=== PATIENT | male | born 1950 | race Caucasian/White ===

== ENCOUNTER 2018-06-10 02:00 | Inpatient (IN) | payer MEDICARE, MEDICAID ==
[~2018-06-10] VITALS: Ht 180.3 cm; Wt 105.9 kg
[2018-06-10] MEDS ORDERED: NITROGLYCERIN 0.4MG TABLET SL SL PRN (02:30)
[2018-06-10] MEDS ORDERED: FUROSEMIDE 40MG/4ML VIAL IV ONE (02:30)
[2018-06-10 02:42] LABS: BASOPHILS % 0.7 % (0.0-2.0); EOSINOPHILS % 0.2 % (0.0-5.0); HEMOGLOBIN. 11.8 g/dL (14.0-18.0); LYMPHOCYTES % 9.5 % (20.0-50.0); MEAN CORPUSCULAR HEMOGLOBIN 29.9 pg (28.0-32.0); MEAN CORPUSCULAR VOLUME 88.4 fL (80.0-94.0); MEAN PLATELET VOLUME 8.3 fl (7.4-10.4); NEUTROPHILS % 81.6 % (40.0-76.0); PLATELET 164 x1000/uL (130-400); RED BLOOD CELL COUNT 3.96 mill/uL (4.7-6.1); RED CELL DISTRIBUTION WIDTH 13.8 % (11.6-14.6)
[2018-06-10 02:46] LABS: CHLORIDE 94 mEq/L (98-107)
[2018-06-10] MEDS ORDERED: VECURONIUM BROMIDE 10 MG/VIAL IV ONE (09:54)
[2018-06-10 10:07] LABS: BG BASE EXCESS 4.2 mmol/L (-2.0-2.0); BG BILEVEL POS AIRWAY PRESSURE 15/5; BG CARBOXYHEMOGLOBIN 0.5 % (0.5-1.5); BG DEOXYHEMOGLOBIN 1.9 % (0.0-5.0); BG HCO3 ACT 30.5 mmol/L (22.0-26.0); BG METHEMOGLOBIN 0.2 % (0.0-1.5); BG OXYGEN SATURATION 98.1 % (92.0-98.5); BG OXYHEMOGLOBIN 97.4 % (94.0-97.0); BG PCO2 53.2 mmHg (35.0-45.0); BG PH 7.376 (7.350-7.450); BG SAMPLE SITE LEFT RADIAL; BG TOTAL HEMOGLOBIN 12.5 g/dL (12.0-18.0); BG VENT MODE MASK - BIPAP; BG VENT RATE 14 set
[2018-06-10 10:49] LABS: PARTIAL THROMBOPLASTIN TIME 36.4 sec (23.4-31.0); PROTHROMBIN TIME 10.1 sec (9.1-11.1)
[2018-06-10] MEDS ORDERED: HYDROCODONE/ACETAMINOPHEN 5/325MG TABLET PO PRN (13:45)
[2018-06-10] MEDS ORDERED: IPRATROPIUM/ALBUTEROL 0.5-3(2.5)MG/3ML NEB INH PRN (13:45)
[2018-06-10] MEDS ORDERED: ACETAMINOPHEN 325MG TABLET PO PRN (13:45)
[2018-06-10] MEDS ORDERED: ONDANSETRON HCL 4MG/2ML INJ IV PRN (13:45)
[2018-06-10] MEDS ORDERED: LORAZEPAM 0.5MG TABLET PO PRN (13:45)
[2018-06-10 14:20] LABS: PHOSPHORUS 3.1 mg/dL (2.5-4.9)
[2018-06-10 14:39] LABS: FOLIC ACID (FOLATE) SERUM >20 ng/mL ng/mL (>5.38)
[2018-06-10 14:51] LABS: FERRITIN 99 ng/mL (22-322); VITAMIN B12 SERUM 827 pg/mL (211-911)
[2018-06-10] MEDS ORDERED: PREDNISONE 20MG TABLET PO SCH (15:45)
[2018-06-10 21:37] VITALS: BP_SYST 160; BP_DIAS 85; BP_DIAS 96
[2018-06-10 22:00] VITALS: BP 169/97
[2018-06-10 22:54] LABS: BG BASE EXCESS -0.3 mmol/L (-2.0-2.0); BG BILEVEL POS AIRWAY PRESSURE 15/5; BG CARBOXYHEMOGLOBIN 0.6 % (0.5-1.5); BG DEOXYHEMOGLOBIN 0.5 % (0.0-5.0); BG FRACTION INSPIRED OXYGEN 100; BG HCO3 ACT 29.9 mmol/L (22.0-26.0); BG METHEMOGLOBIN 0.6 % (0.0-1.5); BG OXYGEN SATURATION 99.5 % (92.0-98.5); BG OXYHEMOGLOBIN 98.3 % (94.0-97.0); BG PCO2 78.7 mmHg (35.0-45.0); BG PH 7.197 (7.350-7.450); BG PO2 346.6 mmHg (75.0-100.0); BG SAMPLE SITE RIGHT BRACHIAL; BG TOTAL HEMOGLOBIN 13.4 g/dL (12.0-18.0); BG VENT MODE MASK - BIPAP; BG VENT RATE 16 set
[2018-06-10] MEDS: MONTELUKAST SODIUM 10MG TABLET PO SCH (23:00)
[2018-06-10] MEDS: LORATADINE 10MG TABLET PO SCH (23:00)
[2018-06-11] VITALS (15 sets, daily range): BP systolic 108–154; BP diastolic 56–98
[2018-06-11] MEDS ORDERED: DEXTROSE 50% WATER 50ML SYRINGE IV PRN
[2018-06-11] MEDS ORDERED: CLONIDINE 0.1MG TABLET PO PRN
[2018-06-11] MEDS: MONTELUKAST SODIUM 10MG TABLET PO SCH ×2 (00:20→16:28)
[2018-06-11] MEDS: LORATADINE 10MG TABLET PO SCH ×2 (00:20→20:02)
[2018-06-11] MEDS: AMOXICILLIN/POTASSIUM CLAVULANATE 875/125MG TAB PO SCH ×4 (00:21→20:02)
[2018-06-11] MEDS: METHYLPREDNISOLONE SOD SUCC 125 MG/2 ML VIAL IV SCH ×4 (00:21→21:15)
[2018-06-11] MEDS ORDERED: MAGNESIUM 2 G PREMIX 50 ML IV SCH (01:00)
[2018-06-11] MEDS: IPRATROPIUM/ALBUTEROL 0.5-3(2.5)MG/3ML NEB HHN SCH ×4 (02:05→20:09)
[2018-06-11] MEDS ORDERED: ACETAMINOPHEN 650MG SUPP PR PRN (05:30)
[2018-06-11] MEDS ORDERED: ASPI-1158 PO (05:53)
[2018-06-11] MEDS ORDERED: ATEN50TA PO (05:53)
[2018-06-11] MEDS ORDERED: PRAM0.5T3 PO (06:00)
[2018-06-11] MEDS ORDERED: NIFE30TA83 PO (06:00)
[2018-06-11] MEDS ORDERED: ALBUTEROL SULFATE (06:00)
[2018-06-11] MEDS: BLOOD SUGAR DIAGNOSTIC STRIP TEST SCH ×4 (06:33→20:18)
[2018-06-11 06:37] LABS: HEMATOCRIT. 35.4 % (42.0-52.0); HEMOGLOBIN. 11.7 g/dL (14.0-18.0); MEAN CORPUSCULAR HEMOGLOBIN 29.8 pg (28.0-32.0); MEAN PLATELET VOLUME 8.5 fl (7.4-10.4); PLATELET 160 x1000/uL (130-400); RED BLOOD CELL COUNT 3.94 mill/uL (4.7-6.1); RED CELL DISTRIBUTION WIDTH 14.2 % (11.6-14.6)
[2018-06-11 07:16] LABS: PHOSPHORUS 6.7 mg/dL (2.5-4.9)
[2018-06-11] MEDS: INSULIN LISPRO 100 UNITS/ML SUBCUT SCH ×4 (07:20→21:14)
[2018-06-11] MEDS: FAMOTIDINE 20MG/2ML VIAL IV SCH ×2 (08:32→20:02)
[2018-06-11] MEDS: FLUTICASONE PROPIONATE 50MCG/SPRAY BOTTLE BOTHNSTRLS SCH ×3 (08:32→20:07)
[2018-06-11 09:14] LABS: BG BASE EXCESS -4.1 mmol/L (-2.0-2.0); BG BILEVEL POS AIRWAY PRESSURE 18/5; BG CARBOXYHEMOGLOBIN 0.3 % (0.5-1.5); BG FRACTION INSPIRED OXYGEN 50; BG HCO3 ACT 23.6 mmol/L (22.0-26.0); BG METHEMOGLOBIN 0.4 % (0.0-1.5); BG OXYHEMOGLOBIN 97.3 % (94.0-97.0); BG PCO2 55.1 mmHg (35.0-45.0); BG PO2 117.6 mmHg (75.0-100.0); BG SAMPLE SITE RIGHT RADIAL; BG TOTAL HEMOGLOBIN 12.1 g/dL (12.0-18.0); BG VENT MODE MASK - BIPAP; BG VENT RATE 24 set
[2018-06-11] MEDS ORDERED: TERBUTALINE SULFATE 1MG/ML VIAL SUBCUT NR (11:45)
[2018-06-11 14:18] LABS: PLATELET ESTIMATE NORMAL
[2018-06-11] MEDS: SODIUM CHLORIDE 0.9% 1,000 ML IV SCH (14:51)
[2018-06-11 16:34] LABS: CLARITY URINE CLOUDY (CLEAR); COLOR URINE DARK YELLOW (YELLOW); KETONES URINE TRACE (NEGATIVE); LEUKOCYTE ESTERASE URINE NEGATIVE (NEGATIVE); NITRITE URINE NEGATIVE (NEGATIVE); OCCULT BLOOD URINE 3+ (NEGATIVE); PROTEIN URINE 4+ (NEGATIVE); SPECIFIC GRAVITY URINE 1.018 (1.005-1.030)
[2018-06-11 16:43] LABS: SODIUM URINE RANDOM 16 mEq/L
[2018-06-11 16:50] LABS: *AMPHETAMINES SCREEN URINE NEGATIVE (NEGATIVE); *BARBITURATES SCREEN URINE NEGATIVE (NEGATIVE); *BENZODIAZEPINES SCREEN URINE NEGATIVE (NEGATIVE); *COCAINE SCREEN URINE NEGATIVE (NEGATIVE); METHADONE URINE SCREEN NEGATIVE (NEGATIVE)
[2018-06-11 16:51] LABS: CANNABINOID URINE SCREEN NEGATIVE (NEGATIVE); OPIATES URINE SCREEN NEGATIVE (NEGATIVE); PHENCYCLIDINE URINE SCREEN NEGATIVE (NEGATIVE)
[2018-06-11] MEDS: GUAIFENESIN 600MG ER TABLET PO SCH (20:02)
[2018-06-11] MEDS ORDERED: INSULIN LISPRO 100 UNITS/ML SUBCUT NR (20:45)
[2018-06-12] VITALS (19 sets, daily range): BP systolic 110–161; BP diastolic 66–90
[2018-06-12] MEDS: IPRATROPIUM/ALBUTEROL 0.5-3(2.5)MG/3ML NEB HHN SCH ×4 (02:16→21:18)
[2018-06-12] MEDS: METHYLPREDNISOLONE SOD SUCC 125 MG/2 ML VIAL IV SCH ×4 (05:27→23:50)
[2018-06-12] MEDS: SODIUM CHLORIDE 0.9% 1,000 ML IV SCH (05:27)
[2018-06-12] MEDS: BLOOD SUGAR DIAGNOSTIC STRIP TEST SCH ×4 (06:16→20:31)
[2018-06-12 06:46] LABS: HEMOGLOBIN. 11.5 g/dL (14.0-18.0); MEAN CORPUSCULAR HEMOGLOBIN 30.1 pg (28.0-32.0); MEAN CORPUSCULAR VOLUME 89.2 fL (80.0-94.0); MEAN PLATELET VOLUME 9.4 fl (7.4-10.4); PLATELET 163 x1000/uL (130-400); RED BLOOD CELL COUNT 3.82 mill/uL (4.7-6.1); RED CELL DISTRIBUTION WIDTH 14.1 % (11.6-14.6)
[2018-06-12] MEDS: AMOXICILLIN/POTASSIUM CLAVULANATE 875/125MG TAB PO SCH (08:02)
[2018-06-12] MEDS: FAMOTIDINE 20MG/2ML VIAL IV SCH ×2 (08:02→20:20)
[2018-06-12] MEDS: GUAIFENESIN 600MG ER TABLET PO SCH ×2 (08:02→20:20)
[2018-06-12] MEDS: FLUTICASONE PROPIONATE 50MCG/SPRAY BOTTLE BOTHNSTRLS SCH ×2 (08:02→20:19)
[2018-06-12] MEDS: INSULIN LISPRO 100 UNITS/ML SUBCUT SCH ×6 (08:03→21:27)
[2018-06-12] MEDS ORDERED: LACTULOSE 20G/30ML UDC PO NR (09:00)
[2018-06-12] MEDS ORDERED: NA PHOS,M-B/NA PHOS,DI-BA ENEMA 118ML PR NR (09:00)
[2018-06-12 09:08] LABS: PHOSPHORUS 6.3 mg/dL (2.5-4.9)
[2018-06-12 09:12] LABS: T4 FREE 1.11 ng/dL (0.76-1.46)
[2018-06-12] MEDS ORDERED: FUROSEMIDE 100MG/10ML VIAL IVP NR (10:45)
[2018-06-12 10:56] LABS: BG BASE EXCESS -5.4 mmol/L (-2.0-2.0); BG BILEVEL POS AIRWAY PRESSURE 18/5; BG CARBOXYHEMOGLOBIN 0.3 % (0.5-1.5); BG FRACTION INSPIRED OXYGEN 50; BG HCO3 ACT 23.2 mmol/L (22.0-26.0); BG OXYGEN SATURATION 97.6 % (92.0-98.5); BG OXYHEMOGLOBIN 96.8 % (94.0-97.0); BG PCO2 59.9 mmHg (35.0-45.0); BG PH 7.206 (7.350-7.450); BG PO2 110.5 mmHg (75.0-100.0); BG SAMPLE SITE RIGHT RADIAL; BG TOTAL HEMOGLOBIN 12.5 g/dL (12.0-18.0); BG VENT MODE MASK - BIPAP; BG VENT RATE 24 set
[2018-06-12 10:57] LABS: BG DEOXYHEMOGLOBIN 2.4 % (0.0-5.0); BG METHEMOGLOBIN 0.5 % (0.0-1.5)
[2018-06-12] MEDS: AZITHROMYCIN 250 MG TABLET PO SCH (11:29)
[2018-06-12] MEDS: INSULIN GLARGINE UD 100 UNITS/ML SYR SUBCUT SCH ×2 (12:50→21:27)
[2018-06-12 13:34] LABS: HEPATITIS B SURFACE ANTIGEN NEGATIVE
[2018-06-12 13:37] LABS: BG BASE EXCESS -4.8 mmol/L (-2.0-2.0); BG BILEVEL POS AIRWAY PRESSURE 20/5; BG CARBOXYHEMOGLOBIN 0.4 % (0.5-1.5); BG DEOXYHEMOGLOBIN 6.1 % (0.0-5.0); BG FRACTION INSPIRED OXYGEN 40; BG HCO3 ACT 23.1 mmol/L (22.0-26.0); BG METHEMOGLOBIN 0.2 % (0.0-1.5); BG OXYGEN SATURATION 93.9 % (92.0-98.5); BG OXYHEMOGLOBIN 93.3 % (94.0-97.0); BG PCO2 54.2 mmHg (35.0-45.0); BG PH 7.247 (7.350-7.450); BG PO2 70.3 mmHg (75.0-100.0); BG SAMPLE SITE RIGHT RADIAL; BG TOTAL HEMOGLOBIN 13.7 g/dL (12.0-18.0); BG VENT MODE MASK - BIPAP; BG VENT RATE 24 set
[2018-06-12 14:04] LABS: HEPATITIS A AB IGM NEGATIVE (NEGATIVE)
[2018-06-12] MEDS: MONTELUKAST SODIUM 10MG TABLET PO SCH (17:31)
[2018-06-12] MEDS: LORATADINE 10MG TABLET PO SCH (20:20)
[2018-06-12] MEDS: CALCIUM CARBONATE 500MG TABLET CHEW PO SCH (20:20)
[2018-06-12] MEDS: CALCITRIOL 0.25MCG CAPSULE PO SCH (21:26)
[2018-06-12 21:46] LABS: PLATELET ESTIMATE NORMAL
[2018-06-13] VITALS (14 sets, daily range): BP systolic 111–157; BP diastolic 56–94
[2018-06-13] MEDS: IPRATROPIUM/ALBUTEROL 0.5-3(2.5)MG/3ML NEB HHN SCH ×4 (01:18→21:02)
[2018-06-13] MEDS: METHYLPREDNISOLONE SOD SUCC 125 MG/2 ML VIAL IV SCH ×2 (06:06→12:33)
[2018-06-13] MEDS: BLOOD SUGAR DIAGNOSTIC STRIP TEST SCH ×4 (06:06→20:48)
[2018-06-13 06:50] LABS: PARTIAL THROMBOPLASTIN TIME 31.5 sec (23.4-31.0); PROTHROMBIN TIME 9.6 sec (9.1-11.1)
[2018-06-13 07:03] LABS: HEMATOCRIT. 34.8 % (42.0-52.0); HEMOGLOBIN. 11.5 g/dL (14.0-18.0); MEAN CORPUSCULAR HEMOGLOBIN 29.2 pg (28.0-32.0); MEAN CORPUSCULAR VOLUME 88.6 fL (80.0-94.0); MEAN PLATELET VOLUME 9.1 fl (7.4-10.4); PLATELET 183 x1000/uL (130-400); RED BLOOD CELL COUNT 3.93 mill/uL (4.7-6.1); RED CELL DISTRIBUTION WIDTH 14.2 % (11.6-14.6)
[2018-06-13] MEDS: INSULIN LISPRO 100 UNITS/ML SUBCUT SCH ×7 (07:55→20:48)
[2018-06-13] MEDS: CALCIUM CARBONATE 500MG TABLET CHEW PO SCH ×3 (07:56→17:26)
[2018-06-13] MEDS: CALCITRIOL 0.25MCG CAPSULE PO SCH (08:00)
[2018-06-13] MEDS: GUAIFENESIN 600MG ER TABLET PO SCH ×2 (08:00→20:46)
[2018-06-13] MEDS: FAMOTIDINE 20MG/2ML VIAL IV SCH ×2 (08:00→21:54)
[2018-06-13] MEDS: AZITHROMYCIN 250 MG TABLET PO SCH (08:00)
[2018-06-13] MEDS: FLUTICASONE PROPIONATE 50MCG/SPRAY BOTTLE BOTHNSTRLS SCH ×2 (08:00→20:45)
[2018-06-13] MEDS: DOCUSATE SODIUM 100MG CAPSULE PO PRN (08:00)
[2018-06-13 08:48] LABS: CHLORIDE 97 mEq/L (98-107)
[2018-06-13] MEDS: LORAZEPAM 2MG/ML CPJ IV PRN ×3 (09:55→22:01)
[2018-06-13 10:31] LABS: PLATELET ESTIMATE NORMAL
[2018-06-13 10:40] LABS: BG BASE EXCESS -4.2 mmol/L (-2.0-2.0); BG DEOXYHEMOGLOBIN 5.2 % (0.0-5.0); BG FRACTION INSPIRED OXYGEN 32; BG HCO3 ACT 24.2 mmol/L (22.0-26.0); BG METHEMOGLOBIN 0.2 % (0.0-1.5); BG OXYGEN SATURATION 94.8 % (92.0-98.5); BG OXYHEMOGLOBIN 94.6 % (94.0-97.0); BG PCO2 60.1 mmHg (35.0-45.0); BG PH 7.223 (7.350-7.450); BG PO2 78.6 mmHg (75.0-100.0); BG SAMPLE SITE RIGHT BRACHIAL; BG TOTAL HEMOGLOBIN 12.5 g/dL (12.0-18.0); BG VENT MODE NASAL CANNULA
[2018-06-13] MEDS: INSULIN GLARGINE UD 100 UNITS/ML SYR SUBCUT SCH ×2 (10:45→20:48)
[2018-06-13] MEDS ORDERED: CALCIUM GLUCONATE 100MG/ML 10ML VIAL IV ONE (11:15)
[2018-06-13] MEDS ORDERED: CALCIUM GLUCONATE 2,000 MG in DEXT 5% WATER 90 ML IV NR (13:00)
[2018-06-13] MEDS: POLYETHYLENE GLYCOL 3350 (17GM) 1 DOSE PACK PO SCH (16:15)
[2018-06-13] MEDS: MONTELUKAST SODIUM 10MG TABLET PO SCH (17:26)
[2018-06-13] MEDS: LORATADINE 10MG TABLET PO SCH (20:46)
[2018-06-13] MEDS: METHYLPREDNISOLONE SOD SUCC 40 MG/ML VIAL IV SCH (21:54)
[2018-06-14] VITALS (11 sets, daily range): BP systolic 134–162; BP diastolic 76–104
[2018-06-14] MEDS: IPRATROPIUM/ALBUTEROL 0.5-3(2.5)MG/3ML NEB HHN SCH ×4 (01:30→22:01)
[2018-06-14] MEDS: METHYLPREDNISOLONE SOD SUCC 40 MG/ML VIAL IV SCH ×3 (06:09→21:26)
[2018-06-14 06:33] LABS: HEMATOCRIT. 34.1 % (42.0-52.0); HEMOGLOBIN. 11.4 g/dL (14.0-18.0); MEAN CORPUSCULAR HEMOGLOBIN 29.4 pg (28.0-32.0); MEAN CORPUSCULAR VOLUME 88.3 fL (80.0-94.0); MEAN PLATELET VOLUME 9.1 fl (7.4-10.4); PLATELET 200 x1000/uL (130-400); RED BLOOD CELL COUNT 3.86 mill/uL (4.7-6.1); RED CELL DISTRIBUTION WIDTH 14.2 % (11.6-14.6)
[2018-06-14] MEDS: BLOOD SUGAR DIAGNOSTIC STRIP TEST SCH ×4 (06:50→20:30)
[2018-06-14] MEDS: GUAIFENESIN 200MG/10ML SUGAR FREE UDC PO PRN ×2 (08:30→17:24)
[2018-06-14] MEDS: POLYETHYLENE GLYCOL 3350 (17GM) 1 DOSE PACK PO SCH (08:31)
[2018-06-14] MEDS: FAMOTIDINE 20MG/2ML VIAL IV SCH ×2 (08:31→20:21)
[2018-06-14] MEDS: CALCITRIOL 0.25MCG CAPSULE PO SCH (08:32)
[2018-06-14] MEDS: AZITHROMYCIN 250 MG TABLET PO SCH (08:32)
[2018-06-14] MEDS: GUAIFENESIN 600MG ER TABLET PO SCH ×2 (08:32→20:22)
[2018-06-14] MEDS: CALCIUM CARBONATE 500MG TABLET CHEW PO SCH ×3 (08:32→17:22)
[2018-06-14] MEDS: INSULIN LISPRO 100 UNITS/ML SUBCUT SCH ×7 (08:33→20:30)
[2018-06-14 09:06] LABS: HIV SCREEN 4G Non Reactive (Non Reactive)
[2018-06-14] MEDS: INSULIN GLARGINE UD 100 UNITS/ML SYR SUBCUT SCH ×2 (11:56→21:25)
[2018-06-14 12:41] LABS: PLATELET ESTIMATE NORMAL
[2018-06-14] MEDS: HYDRALAZINE HCL 10MG TABLET PO SCH ×2 (14:41→21:26)
[2018-06-14 17:06] LABS: ANTI-DNA DOUBLE STRANDED QUANT < 1 IU/mL (0-9); ANTI-NUCLEAR ANTIBODIES DIRECT Negative (Negative)
[2018-06-14] MEDS: MONTELUKAST SODIUM 10MG TABLET PO SCH (17:22)
[2018-06-14] MEDS: LORATADINE 10MG TABLET PO SCH (20:21)
[2018-06-15] VITALS (15 sets, daily range): BP systolic 121–175; BP diastolic 72–101
[2018-06-15] MEDS: IPRATROPIUM/ALBUTEROL 0.5-3(2.5)MG/3ML NEB HHN SCH ×4 (01:02→21:34)
[2018-06-15] MEDS: METHYLPREDNISOLONE SOD SUCC 40 MG/ML VIAL IV SCH (06:36)
[2018-06-15] MEDS: BLOOD SUGAR DIAGNOSTIC STRIP TEST SCH ×4 (06:37→20:26)
[2018-06-15] MEDS: HYDRALAZINE HCL 10MG TABLET PO SCH (06:37)
[2018-06-15] MEDS: INSULIN LISPRO 100 UNITS/ML SUBCUT SCH ×7 (06:43→20:27)
[2018-06-15 06:58] LABS: HEMATOCRIT. 35.4 % (42.0-52.0); HEMOGLOBIN. 11.6 g/dL (14.0-18.0); MEAN CORPUSCULAR HEMOGLOBIN 29.3 pg (28.0-32.0); MEAN CORPUSCULAR VOLUME 89.4 fL (80.0-94.0); PLATELET 223 x1000/uL (130-400); RED BLOOD CELL COUNT 3.96 mill/uL (4.7-6.1); RED CELL DISTRIBUTION WIDTH 14.4 % (11.6-14.6)
[2018-06-15 07:46] LABS: PHOSPHORUS 4.9 mg/dL (2.5-4.9)
[2018-06-15] MEDS: AZITHROMYCIN 250 MG TABLET PO SCH (08:57)
[2018-06-15] MEDS: CALCIUM CARBONATE 500MG TABLET CHEW PO SCH ×3 (08:57→16:41)
[2018-06-15] MEDS: DOCUSATE SODIUM 100MG CAPSULE PO PRN (08:57)
[2018-06-15] MEDS: CALCITRIOL 0.25MCG CAPSULE PO SCH (08:58)
[2018-06-15] MEDS: POLYETHYLENE GLYCOL 3350 (17GM) 1 DOSE PACK PO SCH (08:58)
[2018-06-15] MEDS: GUAIFENESIN 600MG ER TABLET PO SCH ×2 (08:58→20:32)
[2018-06-15] MEDS: GUAIFENESIN 200MG/10ML SUGAR FREE UDC PO PRN (08:58)
[2018-06-15 09:06] LABS: COMPLEMENT C3 164 mg/dL (82-167); GLOMERULAR BASEMENT MEMB AB 3 units (0-20)
[2018-06-15] MEDS: LORAZEPAM 2MG/ML CPJ IV PRN (09:32)
[2018-06-15] MEDS: INSULIN GLARGINE UD 100 UNITS/ML SYR SUBCUT SCH ×2 (10:10→22:04)
[2018-06-15 13:07] LABS: ANTI-MYELOPEROXIDASE AB < 9.0 U/mL (0.0-9.0); ANTI-PROTEINASE 3 ABS < 3.5 U/mL (0.0-3.5)
[2018-06-15] MEDS ORDERED: LORAZEPAM 2MG/ML CPJ IV PRN (13:15)
[2018-06-15 14:18] LABS: PLATELET ESTIMATE NORMAL
[2018-06-15 14:18] LABS: ATYPICAL P-ANCA <1:20 titer (Neg:<1:20); CYTOPLASMIC C-ANCA <1:20 titer (Neg:<1:20); PERINUCLEAR P-ANCA <1:20 titer (Neg:<1:20)
[2018-06-15] MEDS: ALPRAZOLAM 0.25 MG TABLET PO SCH ×2 (14:46→22:01)
[2018-06-15] MEDS: HYDRALAZINE HCL 25MG TABLET PO SCH ×2 (14:46→22:01)
[2018-06-15] MEDS: MONTELUKAST SODIUM 10MG TABLET PO SCH (16:41)
[2018-06-15] MEDS: PREDNISONE 20MG TABLET PO SCH (16:41)
[2018-06-15] MEDS: LORATADINE 10MG TABLET PO SCH (20:31)
[2018-06-15] MEDS ORDERED: FAMOTIDINE 20MG/2ML VIAL IV SCH (21:00)
[2018-06-16] VITALS: BP 143/93
[2018-06-16 00:43] VITALS: BP 145/85
[2018-06-16] MEDS: IPRATROPIUM/ALBUTEROL 0.5-3(2.5)MG/3ML NEB HHN SCH (01:59)
[2018-06-16 02:00] VITALS: BP 154/85
[2018-06-16 04:00] VITALS: BP 138/88
[2018-06-16 05:31] VITALS: BP 169/98
[2018-06-16] MEDS: ALPRAZOLAM 0.25 MG TABLET PO SCH (05:35)
[2018-06-16] MEDS: DOCUSATE SODIUM 100MG CAPSULE PO PRN (05:35)
[2018-06-16] MEDS: HYDRALAZINE HCL 25MG TABLET PO SCH (05:36)
[2018-06-16] MEDS: BLOOD SUGAR DIAGNOSTIC STRIP TEST SCH (05:36)
[2018-06-16] MEDS: INSULIN LISPRO 100 UNITS/ML SUBCUT SCH ×2 (07:20→08:26)
[2018-06-16 07:48] LABS: HEMATOCRIT. 35.7 % (42.0-52.0); HEMOGLOBIN. 11.7 g/dL (14.0-18.0); MEAN CORPUSCULAR HEMOGLOBIN 29.6 pg (28.0-32.0); MEAN CORPUSCULAR VOLUME 89.9 fL (80.0-94.0); MEAN PLATELET VOLUME 8.9 fl (7.4-10.4); PLATELET 223 x1000/uL (130-400); RED BLOOD CELL COUNT 3.97 mill/uL (4.7-6.1)
[2018-06-16 08:00] VITALS: BP 198/76
[2018-06-16] MEDS: GUAIFENESIN 600MG ER TABLET PO SCH (08:25)
[2018-06-16] MEDS: AZITHROMYCIN 250 MG TABLET PO SCH (08:25)
[2018-06-16] MEDS: CALCIUM CARBONATE 500MG TABLET CHEW PO SCH (08:25)
[2018-06-16] MEDS: CALCITRIOL 0.25MCG CAPSULE PO SCH (08:25)
[2018-06-16] MEDS: PREDNISONE 20MG TABLET PO SCH (08:25)
[2018-06-16] MEDS: GUAIFENESIN 200MG/10ML SUGAR FREE UDC PO PRN (08:26)
[2018-06-16] MEDS: POLYETHYLENE GLYCOL 3350 (17GM) 1 DOSE PACK PO SCH (08:26)
[2018-06-16 08:52] LABS: PHOSPHORUS 4.8 mg/dL (2.5-4.9)
[2018-06-16] MEDS ORDERED: SODIUM POLYSTYRENE SULFONATE 15 G/60 ML BOT PO ONE (09:15)
[2018-06-16 09:31] LABS: PLATELET ESTIMATE NORMAL
[2018-06-17 19:09] LABS: 25-HYDROXY VITAMIN D3 23 ng/mL (.)
== END 2018-06-16 09:21 | disposition left against medical advice (07) | DRG 189 ==
LOC: ER 02:00 → CANRESERV 06:56 → ENRESERV 06:56 → 3WST 09:07 → EDBEDREQSVC 09:17 → CANBEDREQ 09:19 → ENRESERV 20:35
PROVIDERS: ADMIT Internal Medicine; ATTEND Internal Medicine
PROC: 5A09457 Assistance with Respiratory Ventilation, 24-96 Consecutive Hours, Continuous Positive Airway Pressure (ICD-10-PCS; principal; 2018-06-10)
PROC: 5A09357 Assistance with Respiratory Ventilation, Less than 24 Consecutive Hours, Continuous Positive Airway Pressure (ICD-10-PCS; 2018-06-13)
PROC: 5A09357 Assistance with Respiratory Ventilation, Less than 24 Consecutive Hours, Continuous Positive Airway Pressure (ICD-10-PCS; 2018-06-14)
PROC: 5A09357 Assistance with Respiratory Ventilation, Less than 24 Consecutive Hours, Continuous Positive Airway Pressure (ICD-10-PCS; 2018-06-15)
PROC: 5A09357 Assistance with Respiratory Ventilation, Less than 24 Consecutive Hours, Continuous Positive Airway Pressure (ICD-10-PCS; 2018-06-16)
DX: J96.01 Acute respiratory failure with hypoxia (principal); N17.0 Acute kidney failure with tubular necrosis; J45.901 Unspecified asthma with (acute) exacerbation; E87.1 Hypo-osmolality and hyponatremia; E87.2 Acidosis; J44.1 Chronic obstructive pulmonary disease with (acute) exacerbation; J96.02 Acute respiratory failure with hypercapnia; I11.0 Hypertensive heart disease with heart failure; I50.9 Heart failure, unspecified; D64.9 Anemia, unspecified; E11.9 Type 2 diabetes mellitus without complications; E55.9 Vitamin D deficiency, unspecified; E78.5 Hyperlipidemia, unspecified; E66.9 Obesity, unspecified; M94.0 Chondrocostal junction syndrome [Tietze]; Z79.82 Long term (current) use of aspirin; Z82.49 Family history of ischemic heart disease and other diseases of the circulatory system; Z90.49 Acquired absence of other specified parts of digestive tract; Z68.32 Body mass index [BMI] 32.0-32.9, adult
CPT/HCPCS: 36415; 36600; 71045; 76700; 76705; 78580; 80048; 80061; 80305; 82306; 82375; 82533; 82550; 82570; 82607; 82728; 82746; 82805; 82962; 83036; 83520; 83540; 83550; 83735; 83880; 83935; 83970; 84100; 84156; 84300; 84439; 84443; 84481; 84484; 86038; 86160; 86225; 86256; 86705; 86709; 86803; 87340; 87389; 87804; 93005; 93306; 94640; 94660; 96374; 99285; J0610; J1815; J1940; J2060; J2920; J2930; J3105; J3475; J3490; J7030; J7040; J7060; J7512; J7620; A4315

== ENCOUNTER 2019-08-24 17:35 | Emergency (ER) | payer MEDICAID, MEDICARE ==
[~2019-08-24] VITALS: Ht 172.7 cm; Wt 82.0 kg
[~2019-08-24 17:35] MED LIST: ALBUTEROL SULFATE; ASPI-1158 PO; ATEN50TA PO; NIFE-33 PO; PRAM0.5T3 PO
[2019-08-24] MEDS ORDERED: PREDNISONE 20MG TABLET PO STA (17:46)
[2019-08-24] MEDS ORDERED: IPRATROPIUM BROMIDE (0.02%) 0.5MG/2.5ML NEB HHN STA (17:46)
[2019-08-24] MEDS ORDERED: ALBUTEROL (0.083%) 2.5MG/3ML NEB HHN STA (17:46)
[2019-08-24 18:40] LABS: BASOPHILS % 1.1 % (0.0-2.0); HEMATOCRIT. 29.7 % (42.0-52.0); HEMOGLOBIN. 10.3 g/dL (14.0-18.0); LYMPHOCYTES % 10.6 % (20.0-50.0); MEAN CORPUSCULAR VOLUME 89.4 fL (80.0-94.0); MEAN PLATELET VOLUME 8.7 fl (7.4-10.4); MONOCYTES % 6.1 % (2.0-8.0); NEUTROPHILS % 81.2 % (40.0-76.0); PLATELET 189 x1000/uL (130-400); RED BLOOD CELL COUNT 3.32 mill/uL (4.7-6.1); RED CELL DISTRIBUTION WIDTH 14.1 % (11.6-14.6)
[2019-08-24 18:45] LABS: CHLORIDE 84 mEq/L (98-107)
[2019-08-24] MEDS ORDERED: CALCIUM CARBONATE 500MG TABLET CHEW PO ONE (19:45)
[2019-08-24 20:37] VITALS: BP 125/76
== END 2019-08-24 20:41 | disposition home or self-care (01) ==
LOC: ER 17:35
DX: J45.901 Unspecified asthma with (acute) exacerbation (principal); R06.00 Dyspnea, unspecified; I10 Essential (primary) hypertension; Z79.82 Long term (current) use of aspirin; Z79.899 Other long term (current) drug therapy
CPT/HCPCS: 36415; 71045; 80053; 83880; 84484; 85025; 93005; 94640; 99285; J7512